=== PATIENT | female | born 1945 | race Caucasian/White ===

== ENCOUNTER → 2016-03-22 | Outpatient (CLI) | payer MEDICARE ==
[2016-03-22 13:52] LABS: HIV 1/2 Antibodies Non-Reactive; HIV-1p24 Antigen Non-Reactive
== END ==
LOC: COL.LAB 12:05
PROVIDERS: Orthopaedic Surgery
DX: Z01.818 Encounter for other preprocedural examination (principal); M17.11 Unilateral primary osteoarthritis, right knee

== ENCOUNTER → 2017-06-13 | Outpatient (CLI) | payer MEDICARE | LOC: MHCPAIN 13:53 | DX: G89.29 Other chronic pain (principal); M47.817 Spondylosis without myelopathy or radiculopathy, lumbosacral region; M54.16 Radiculopathy, lumbar region; M53.3 Sacrococcygeal disorders, not elsewhere classified | CPT/HCPCS: G0463 ==

== ENCOUNTER → 2017-06-13 | Outpatient (CLI) | payer MEDICARE | LOC: COL.RAD 15:07 | DX: M43.17 Spondylolisthesis, lumbosacral region (principal); M53.2X6 Spinal instabilities, lumbar region; M47.816 Spondylosis without myelopathy or radiculopathy, lumbar region ==

== ENCOUNTER → 2017-07-09 | Outpatient (CLI) | payer MEDICARE | LOC: MC.RAD 07-06 11:20 | DX: Z12.31 Encounter for screening mammogram for malignant neoplasm of breast (principal) ==

== ENCOUNTER → 2018-07-30 | Outpatient (CLI) | payer MEDICARE | LOC: MHCPAIN 11:16 | DX: G89.29 Other chronic pain (principal); M47.817 Spondylosis without myelopathy or radiculopathy, lumbosacral region; M54.16 Radiculopathy, lumbar region; M53.3 Sacrococcygeal disorders, not elsewhere classified | CPT/HCPCS: G0463 ==

== ENCOUNTER 2018-10-02 10:30 | Outpatient (RCR) | payer MEDICARE | END 2018-11-04 | disposition home or self-care (01) | LOC: WSPT | DX: M47.27 Other spondylosis with radiculopathy, lumbosacral region (principal); M53.3 Sacrococcygeal disorders, not elsewhere classified ==

== ENCOUNTER → 2018-10-29 | Outpatient (CLI) | payer MEDICARE | LOC: MHCPAIN 10:39 | DX: G89.29 Other chronic pain (principal); M47.817 Spondylosis without myelopathy or radiculopathy, lumbosacral region; M54.16 Radiculopathy, lumbar region; M53.3 Sacrococcygeal disorders, not elsewhere classified | CPT/HCPCS: G0463 ==

== ENCOUNTER 2018-11-07 14:12 | Emergency (ER) | payer MEDICARE ==
[~2018-11-07] VITALS: Ht 152.4 cm; Wt 59.1 kg
[2018-11-07 14:27] VITALS: TEMP 98.1
[2018-11-07] MEDS ORDERED: ULTRAM 50MG TAB50 MG PO ×2 (16:03→16:42)
[2018-11-07] MEDS ORDERED: ADDERALL30 MG PO (16:08)
[2018-11-07] MEDS ORDERED: PRIL40 PO (16:09)
[2018-11-07] MEDS ORDERED: MOTRIN 200200 MG/TAB PO (16:10)
[2018-11-07 16:59] VITALS: BP 139/81; PULSE 87
== END 2018-11-07 16:59 | disposition home or self-care (01) ==
LOC: COL.ER 14:12
DX: S09.90XA Unspecified injury of head, initial encounter (principal); S16.1XXA Strain of muscle, fascia and tendon at neck level, initial encounter; S30.0XXA Contusion of lower back and pelvis, initial encounter; S01.01XA Laceration without foreign body of scalp, initial encounter; W01.198A Fall on same level from slipping, tripping and stumbling with subsequent striking against other object, initial encounter; Y92.009 Unspecified place in unspecified non-institutional (private) residence as the place of occurrence of the external cause

== ENCOUNTER 2018-11-19 08:58 | Emergency (ER) | payer MEDICARE ==
[~2018-11-19 08:58] MED LIST: ADDERALL30 MG PO; MOTRIN 200200 MG/TAB PO; PRIL40 PO; ULTRAM 50MG TAB50 MG PO
[2018-11-19 09:12] VITALS: BP 120/63; PULSE 81; TEMP 97.9
== END 2018-11-19 09:15 | disposition home or self-care (01) ==
LOC: COL.ER 08:58
DX: S01.01XD Laceration without foreign body of scalp, subsequent encounter (principal); X58.XXXD Exposure to other specified factors, subsequent encounter

== ENCOUNTER → 2019-06-09 | Outpatient (CLI) | payer MEDICARE | LOC: COL.RAD 07:32 | DX: K21.9 Gastro-esophageal reflux disease without esophagitis (principal); K44.9 Diaphragmatic hernia without obstruction or gangrene | CPT/HCPCS: A9541 ==

== ENCOUNTER → 2020-01-26 | Outpatient (CLI) | payer MEDICARE | LOC: COL.RAD 08:32 | DX: Z01.818 Encounter for other preprocedural examination (principal); K44.9 Diaphragmatic hernia without obstruction or gangrene ==

== ENCOUNTER 2020-02-11 08:03 | Day surgery (SDC) | payer MEDICARE ==
[~2020-02-11] VITALS: Ht 154.3 cm; Wt 59.3 kg
[2020-02-11] VITALS (11 sets, daily range): BP systolic 113–141; BP diastolic 54–87; PULSE 80–95; TEMP 97.7–98.4
[2020-02-11] MEDS ORDERED: NEXIUM 40MG40 MG PO (09:00)
[2020-02-11] MEDS ORDERED: VITAMIND3 5000 PO (09:01)
[2020-02-11] MEDS ORDERED: WELLBUTRIN XL300 M1 PO (09:01)
[2020-02-11] MEDS ORDERED: OSCAL 500 TAB500 MG PO (09:02)
[2020-02-11] MEDS ORDERED: VITAMIN B COMPL1 SGL PO (09:02)
[2020-02-11] MEDS ORDERED: TYLENOL 325MG325 MG PO (09:03)
--- NOTE | 2020-02-11 11:00 | NUR ---
The patient ambulated to the bathroom with the stand by assistance of one nurse and appeared to tolerate the activity well. The patient voided without difficulty.
--- NOTE | 2020-02-11 11:13 | NUR ---
The patient was taken via cart to the operating room at this time. The patient's chart was sent with her to surgery. The patient's belongings will be taken over to the recovery room and transferred with her up to the 3rd floor post operatively.
--- NOTE | 2020-02-11 19:35 | NUR ---
Resting in bed. Assessment complete. Lungs clear. Heart sounds normal. Bowels hypoactive currently. Patient has not passed gas. Reports bletching. educated to notify staff when gas is passed. Pulses present throughout. No edema noted. SCD in place. INT left wrist without complications. Denies pain. Denies needs at this time. Call light in reach.
--- NOTE | 2020-02-11 22:46 | NUR ---
Reported 7/10 back pain. Provided with PRN michelle at this time. Call light in reach.
--- NOTE | 2020-02-11 23:43 | NUR ---
Continued pain, 5/10 in back. Given PRN tylenol at this time. Denies other needs. Will monitor.
[2020-02-12 04:11] VITALS: BP 117/78; PULSE 93; TEMP 98.4
--- NOTE | 2020-02-12 04:22 | NUR ---
Resting in bed. Denies needs. Denies pain. Call light in reach.
--- NOTE | 2020-02-12 06:01 | NUR ---
Patient required x1 dose of norco and x1 dose of tylenol for pain control during night. Otherwise uneventful night. Resting in bed this AM. Call light in reach.
--- NOTE | 2020-02-12 06:53 | NUR ---
Report given to BECKY Deng
[2020-02-12 07:55] VITALS: BP 126/59; PULSE 77; TEMP 97.9
--- NOTE | 2020-02-12 09:25 | NUR ---
Process Control Supervisor met with patient to discuss discharge planning. When SW entered patient's room, she was up at the sink brushing her teeth. Patient lives in [place] with her , Italo (ph#[phone]) and sees Dr. Martinez for primary care. Patient obtains medications from [facility] with no difficulties. Patient does not use any DME and is independent with [facility]. Patient thinks she may have DPOA-HC but states her , Italo arranges those things. Patient plans to return home today and states she should be dismissed today. No needs identified at this time.
--- NOTE | 2020-02-12 09:44 | NUR ---
Patient alert and oriented, answers questions appropriately. See assessment. Abdomen soft, non tender, non distended. Bowel sounds active x4 quads. No flatus. Lap sites to abdomen with edges well approximated, no redness or drainage noted. Post op exercises reviewed. No c/o at this time.
[2020-02-12 12:00] VITALS: BP 124/65; PULSE 94; TEMP 98.7
[2020-02-12 16:00] VITALS: BP 124/69; PULSE 95; TEMP 98.3
[2020-02-12] MEDS ORDERED: NORCO 325 MG-51 TAB PO (16:55)
--- NOTE | 2020-02-12 16:55 | NUR ---
Dr Lambert here to see patient.
--- NOTE | 2020-02-12 17:58 | NUR ---
Discharge instructions reviewed with patient, verbalized understanding. Discharged ambulatory to auto/home with spouse at 1800.
== END 2020-02-12 18:00 | disposition home or self-care (01) ==
LOC: SDCO 08:03 → JCC 14:02 → SDCO 02-12 18:00
DX: K21.9 Gastro-esophageal reflux disease without esophagitis (principal); K44.9 Diaphragmatic hernia without obstruction or gangrene; Z96.653 Presence of artificial knee joint, bilateral; Z80.42 Family history of malignant neoplasm of prostate; Z20.828 Contact with and (suspected) exposure to other viral communicable diseases; M19.90 Unspecified osteoarthritis, unspecified site; F90.9 Attention-deficit hyperactivity disorder, unspecified type
CPT/HCPCS: OP; J0690; J1100; J1885; J2370; J2405; J2704; J3010; J3475; J7120

== ENCOUNTER → 2021-04-21 | Outpatient (CLI) | payer MEDICARE ==
[~2021-04-21] MED LIST changes: +NEXIUM 40MG40 MG PO; +NORCO 325 MG-51 TAB PO; +OSCAL 500 TAB500 MG PO; +TYLENOL 325MG325 MG PO; +VITAMIN B COMPL1 SGL PO; +VITAMIND3 5000 PO; +WELLBUTRIN XL300 M1 PO
== END ==
LOC: MC.RAD 13:25
DX: Z12.31 Encounter for screening mammogram for malignant neoplasm of breast (principal)